=== PATIENT | female | born 1950 | race Caucasian/White ===

== ENCOUNTER → 2020-09-13 | Outpatient (CLI) | payer MEDICARE ==
[~2020-09-13] MED LIST: ASPIRIN CHEWABL81 MG PO; CRESTOR10 MG PO; ENOXAPARIN40 MG/0.4 SC; HYDROCODON-ACE1 EAC6 PO
== END ==
LOC: KOH-I 08-31 15:30
DX: I73.9 Peripheral vascular disease, unspecified (principal)
CPT/HCPCS: 93922; 93925